=== PATIENT | female | born 1975 | race Caucasian/White ===

== ENCOUNTER → 2021-02-20 13:02 | Outpatient (CLI) | payer SELFPAY ==
--- NOTE | 2021-02-20 | DI.MRI.S_ITS ---
PROCEDURE: MR LUMBAR SPINE WO CON INDICATIONS: Radiculopathy, lumbar region TECHNIQUE: Noncontrast sagittal T1 spin echo and T2 fast echo, sagittal STIR, axial T1 and T2 fast spin echo through the lumbar spine. In cases with scoliosis, additional coronal T2 fast spin echo may be performed. COMPARISON: [facility], CR, KUB, 12/21/2013, 11:31. [facility], , L-SPINE WITHOUT CONTRAST, 10/17/2014, 12:57. FINDINGS: Image quality: Excellent. Alignment and Curvature: 5 lumbar type vertebral bodies are present by plain film. Loss of normal lumbar lordosis. Minimal grade 1 retrolisthesis of L2 on L3. Bone Marrow: Marrow is of normal overall signal. No acute vertebral body compression fractures. Mild reactive signal within the endplates adjacent to the L2-L3, L3-L4, L4-L5, and L5-S1 intervertebral discs. Spinal Cord: Conus medullaris terminates at the lower L1 level. Visualized cord demonstrates normal signal and size. Paraspinous Soft Tissues: No paravertebral masses. T12-L1: Normal appearance. L1-L2: Minimal disc desiccation and diffuse disc bulge. No significant canal, or foraminal stenosis. No significant change. L2-L3: Moderate disc height loss and desiccation. Mild diffuse disc bulge. Mild facet and ligamentum flavum hypertrophy. Mild canal stenosis. No foraminal stenosis. No significant change. L3-L4: Mild disc desiccation and diffuse disc bulge. Mild facet and ligamentum flavum hypertrophy. Mild canal stenosis. No foraminal stenosis. No significant change L4-L5: Mild disc desiccation and diffuse disc bulge. Mild facet and ligamentum flavum hypertrophy. Mild canal stenosis. Mild to moderate bilateral foraminal stenosis. No change. L5-S1: Mild disc desiccation and diffuse disc bulge. Mild bilateral facet hypertrophy. No significant canal stenosis. Moderate subarticular foraminal stenosis bilaterally. No significant change. IMPRESSION: 1. Multilevel degenerative disc and facet disease, as well as ligamentum flavum hypertrophy and epidural lipomatosis. 2. Mild multilevel canal stenosis. 3. Multilevel foraminal stenoses, worst at L5-S1 bilaterally where there are moderate foraminal stenosis. Dictated by: Nilda Roy M.D. on 02/20/2021 at 14:58 Approved by: Nilda Roy M.D. on 02/20/2021 at 15:01
== END ==
PROVIDERS: PCP Family Medicine; Referring Provider Family Medicine; Visit Provider Family Medicine
DX: M51.16 Intervertebral disc disorders with radiculopathy, lumbar region (principal); M51.17 Intervertebral disc disorders with radiculopathy, lumbosacral region; M48.061 Spinal stenosis, lumbar region without neurogenic claudication; M48.07 Spinal stenosis, lumbosacral region
CPT/HCPCS: 72148

== ENCOUNTER 2022-06-03 18:08 | Emergency (ER) | payer SELFPAY ==
[2022-06-03 18:14] VITALS: BP 143/73; PULSE 88; RESP 20; TEMP 35.7; O2SAT 100; BMI 33.8
--- NOTE | 2022-06-03 18:17 | DI.US.S_ITS ---
PROCEDURE: US PERIPH VENOUS LOW EXTREM LT INDICATIONS: pain/swelling TECHNIQUE: Real-time imaging, as well as color and pulse Doppler interrogation, were performed of the lower extremity deep veins from the inguinal ligament to the popliteal fossa. COMPARISON: None. FINDINGS: The common femoral, femoral and popliteal veins are normally compressible, and free of intraluminal thrombus. Color and pulse Doppler demonstrate normal phasic intraluminal flow. There is normal augmentation response to distal compression maneuver. IMPRESSION: No DVT in the left lower extremity. Dictated by: Abby Martínez M.D. on 06/03/2022 at 19:05 Approved by: Abby Martínez M.D. on 06/03/2022 at 19:05
--- NOTE | 2022-06-03 22:17 | ED.EXTPRO ---
HPI - Extremity Problem General Chief complaint: Extremity Problem,Nontraumatic Stated complaint: Poss blood clot, Sent from [facility] [employer] Time Seen by Provider: 06/03/22 22:10 Source: patient Mode of arrival: Ambulatory History of Present Illness HPI Narrative: Patient is a healthy 46-year-old female who was on hormone replacement from menopause presenting today with left leg swelling and pain. She says yesterday she was at work she walks around on concrete she did not do anything strenuous. She noticed that her calf is more swollen than normal. It does hurt to walk. It is also noticed to be a lot color than her right leg. No chest pain no shortness of breath. She has not traveled anywhere no prior history of blood clots. She denies any injury. Related Data Allergies Allergy/AdvReac Type Severity Reaction Status Date / Time INGREDIENT: NDA - NO KNOWN Allergy Unknown Uncoded 12/01/17 12:58 DRUG ALLERGIES Meperidine AdvReac Unknown Uncoded 12/01/17 12:58 Morphine AdvReac Unknown Uncoded 12/01/17 12:58 Review of Systems Review of Systems Narrative: GENERAL: Denies chills,fever HEENT: Denies throat pain RESPIRATORY: Denies dyspnea, cough, wheezing CARDIOVASCULAR: Denies chest pain, palpitations GASTROINTESTINAL: Denies nausea, vomiting MUSCULOSKELETAL: See HPI SKIN: No rash, no laceration, no pruritus NEUROLOGIC: Denies weakness, dizziness, headache, numbness 8 point review of systems is negative except for those stated above and HPI Patient History Social History Smoking Status: Never smoker Smoking Status: Never smoker Substance Use Type: does not use Exam Initial Vital Signs Initial Vital Signs: Vital Signs Temperature 96.3 F L 06/03/22 18:14 Pulse Rate 88 06/03/22 18:14 Respiratory Rate 20 06/03/22 18:14 Blood Pressure 143/73 H 06/03/22 18:14 Pulse Oximetry 100 06/03/22 18:14 Oxygen Delivery Method 06/03/22 18:14 GENERAL: Alert pleasant 46-year-old female and in no acute distress. HEENT: Head atraumatic,EOMI, pupils reactive, face symmetric, moist mucous membranes CARDIOVASCULAR: Regular rate and rhythm without murmurs, rubs or gallops. RESPIRATORY: Breath sounds equal bilaterally, no wheezes rales or rhonchi. ABDOMEN: Soft, nontender. Normoactive bowel sounds all 4 quadrants. No guarding or rebound. EXTREMITIES: Normal range of motion, no clubbing or edema. Neurovascularly intact Left calf is more swollen right calf. It is obviously more cold to touch than the right as well. However she does have a strong distal pedal pulse. Left upper thigh is definitely warmer than the lower calf. No cyanosis. NEUROLOGICAL: Alert and oriented x4. SKIN: Warm, dry, no laceration, no petechiae, no rashes or lesions. Course Orders Ordered: ED Orders 06/03/22 18:17 US periph venous low extrem lt Stat 06/03/22 22:40 CBC Auto Diff [Complete Blood Count AUTO DIFF] Stat CMP [Comprehensive Metabolic Panel] Stat CPK [Creatine Kinase] Stat D Dimer Stat Vital Signs Vital signs: Vital Signs - 8 hr 06/03/22 18:14 06/03/22 22:46 Temperature 96.3 F L Pulse Rate 88 88 Respiratory Rate 20 16 Blood Pressure 143/73 H 142/88 H Pulse Oximetry 100 99 Oxygen Delivery Method Room Air Room Air MDM - Extremity (Nontraumatic) Lab Data Result diagrams: 06/03/22 22:40 06/03/22 22:40 Labs: Lab Results 06/03/22 06/03/22 06/03/22 Range/Units 22:40 22:40 22:40 WBC 9.1 (4.5-11.0) X10^3/uL RBC 4.83 (4.0-5.2) X10^6/uL Hgb 13.8 (12.0-16.0) g/dL Hct 39.7 (36-46) % MCV 82.4 (80-100) fL MCH 28.6 (26-34) PG MCHC 34.7 (30-36) % RDW 13.7 (11.6-14.8) % Plt Count 272 (150-400) X10^3/uL Neut % (Auto) 67.8 (50-75) % Lymph % (Auto) 24.0 L (25-40) % [place] % (Auto) 6.6 (3-14) % Eos % (Auto) 0.9 L (2-4) % Baso % (Auto) 0.7 (0-2) % Neut # (Auto) 6200 (6547-2821) /uL Lymph # (Auto) 2200 (9418-7235) /uL [place] # (Auto) 600 (0-900) /uL Eos # (Auto) 100 (0-450) /uL Baso # (Auto) 100 (0-100) /uL D-Dimer < 215 (<500) ng/ml Sodium 139 (137-145) mmol/L Potassium 3.4 (3.4-5.1) mmol/L Chloride 103 (98-107) mmol/L Carbon Dioxide 28 (22-32) mmol/L BUN 13 (7-17) mg/dL Creatinine 0.83 (0.52-1.04) mg/dL Estimated GFR > 60 (>60) mL/min BUN/Creatinine Ratio 15.7 (6-22) Glucose 97 (70-100) mg/dL Calcium 9.0 (8.4-10.2) mg/dL Total Bilirubin 0.5 (0.2-1.3) mg/dL AST 27 (14-36) IU/L ALT 30 (<35) IU/L Alkaline Phosphatase 47 (38-126) U/L Total Creatine Kinase 349 H (30-135) U/L Total Protein 7.5 (6.3-8.2) g/dL Albumin 4.4 (3.5-5.0) g/dL Globulin 3.1 (1.7-4.1) g/dL Albumin/Globulin Ratio 1.4 (1.0-2.8) Imaging Data US - DVT: Radiologist's Impression: Ultrasound Report Signed Patient: Elissa Daugherty MR#: [id number] : 1975 Acct:[id number] Age/Sex: 46 / F Date of Service: 06/03/22 Loc: ED Accession Number: [id number] ?? Procedure: US periph venous low extrem lt Ordering Provider: Violeta Shin D.O. PROCEDURE:? US PERIPH VENOUS LOW EXTREM LT ? INDICATIONS:? pain/swelling ? TECHNIQUE:? Real-time imaging, as well as color and pulse Doppler interrogation, were performed of the lower extremity deep veins from the inguinal ligament to the popliteal fossa.? ? COMPARISON:? None. ? FINDINGS:? The common femoral, femoral and popliteal veins are normally compressible, and free of intraluminal thrombus.? Color and pulse Doppler demonstrate normal phasic intraluminal flow.? There is normal augmentation response to distal compression maneuver. ? ? IMPRESSION:? No DVT in the left lower extremity. ? ? Dictated by: Abby Martínez M.D. on 06/03/2022 at 19:05 ? ? Approved by: Abby Martínez M.D. on 06/03/2022 at 19:05 ? MDM Narrative Medical decision making narrative: Patient is here for left calf pain and swelling. DVT study is negative she is on hormone replacement but no other risk factor. Her foot and calf are quite cool compared to the other leg. There is some swelling noted as well and is tender to touch. Concern for other etiology possible rhabdo. However blood work is reassuring she has a negative D-dimer highly unlikely that there is an underlying thrombus that is missed by ultrasound. CPK is within normal limits of a no evidence of renal failure. His after legs are under blankets her lower extremity becomes much warmer. No concern for arterial thrombus. She has a very strong palpable distal pedal pulse. At this time I do not see a need for arterial ultrasound. Likely diagnosis is a calf strain from walking. Discharge Plan Departure Patient Disposition: Home Clinical Impression: Strain of left calf muscle Instructions: Calf Muscle Strain Activity Restrictions/Additional Instructions: *You have been diagnosed with left calf strain *What to do: At this time you do not have a blood clot in her leg. It like is cool to touch but you have good circulation. No evidence of any other injury or damage. Possibly stranger calf. *Continue to take medications as directed Tylenol or ibuprofen as indicated if needed for pain *Follow up with your primary care provider in 2-3 days or call [phone] *Return to ER if you should have increasing pain swelling numbness tingling redness or any new, worsening or concerning symptoms Referrals: Jd Narayan MD [Primary Care Provider] - Visit Report Forms: Patient Portal/API
[2022-06-03 22:46] VITALS: BP 142/88; PULSE 88; RESP 16; O2SAT 99
[2022-06-03 22:53] LABS: Add Manual Diff / Slide Review NO; Basophils Absolute Auto 100 /uL (0-100); Basophils Percent Auto 0.7 % (0-2); Eosinophils Absolute Auto 100 /uL (0-450); Eosinophils Percent Auto 0.9 % (2-4); Hematocrit 39.7 % (36-46); Hemoglobin 13.8 g/dL (12.0-16.0); Lymphocytes Absolute Auto 2200 /uL (1100-4500); Mean Corpuscular HGB Conc 34.7 % (30-36); Mean Corpuscular Hemoglobin 28.6 PG (26-34); Mean Corpuscular Volume 82.4 fL (80-100); Monocytes Absolute Auto 600 /uL (0-900); Monocytes Percent Auto 6.6 % (3-14); Neutrophils Absolute Auto 6200 /uL (1500-7000); Neutrophils Percent Auto 67.8 % (50-75); Platelet Count 272 X10^3/uL (150-400); Red Blood Cell Count 4.83 X10^6/uL (4.0-5.2); Red Cell Distribution Width 13.7 % (11.6-14.8); White Blood Cell Count 9.1 X10^3/uL (4.5-11.0)
[2022-06-03 22:59] LABS: D Dimer < 215 ng/ml (<500)
[2022-06-03 23:00] LABS: Alanine Aminotransferase 30 IU/L (<35); Albumin 4.4 g/dL (3.5-5.0); Albumin Globulin Ratio 1.4 (1.0-2.8); Alkaline Phosphatase 47 U/L (38-126); Aspartate Aminotransferase 27 IU/L (14-36); BUN Creatinine Ratio 15.7 (6-22); Bilirubin Total 0.5 mg/dL (0.2-1.3); Blood Urea Nitrogen 13 mg/dL (7-17); Carbon Dioxide 28 mmol/L (22-32); Chloride 103 mmol/L (98-107); Creatine Kinase 349 U/L (30-135); Estimated Glomerular Filt Rate > 60 mL/min (>60); Globulin 3.1 g/dL (1.7-4.1); Glucose 97 mg/dL (70-100); HEMOLYSIS < 15 (0-50); Potassium 3.4 mmol/L (3.4-5.1); Sodium 139 mmol/L (137-145); Total Protein 7.5 g/dL (6.3-8.2)
== END 2022-06-03 23:19 | disposition home or self-care (01) ==
PROVIDERS: Emergency Provider Emergency Medicine; PCP Family Medicine
DX: S86.912A Strain of unspecified muscle(s) and tendon(s) at lower leg level, left leg, initial encounter (principal)
CPT/HCPCS: 36415; 80053; 82550; 85025; 85379; 93971; 99284